=== PATIENT | female | born 1965 | race African-American/Black ===

== ENCOUNTER 2019-11-06 16:10 | Emergency (ER) | payer OTHER ==
--- NOTE | 2019-11-06 18:17 | ULT ---
LEFT LOWER EXTREMITY VENOUS DOPPLER: Date: 11-06-2019 PROVIDED CLINICAL HISTORY: Pain FINDINGS: Grayscale, Doppler sonography with spectral analysis was performed of the left common femoral, femora l, popliteal, posterior tibial, greater saphenous and profunda femoral veins demonstrating a normal s onographic appearance to each. There is ill-defined diminished echogenicity seen within the soft tiss ues at the left lateral posterior angle. The sonographic appearance of which is nonspecific. IMPRESSION: No sonographic evidence for left lower extremity deep venous thrombosis. POS: [facility]
== END 2019-11-06 18:10 | disposition home or self-care (01) ==
LOC: ERS 16:10
DX: M79.662 Pain in left lower leg (principal); E11.40 Type 2 diabetes mellitus with diabetic neuropathy, unspecified; I10 Essential (primary) hypertension; Z79.84 Long term (current) use of oral hypoglycemic drugs; Z79.4 Long term (current) use of insulin; Z79.899 Other long term (current) drug therapy